=== PATIENT | female | born 1960 | race Caucasian/White ===

== ENCOUNTER 2017-01-16 18:25 | Emergency (ER) | payer BC ==
--- NOTE | 2017-01-16 18:40 | ERNOTE ---
Animal Bite ER Presenting Symptoms: bitten Time Seen by Provider: 01/16/17 18:31 Source: patient Exam Limitations: no limitations Immunizations: IMMUNIZATION HX Immunizations Up to Date Yes History of Influenza Vaccine Yes Hx Pneumococcal Vaccination No Allergies/Adverse Reactions: Allergies morphine Allergy (Verified 01/16/17 18:32) Home Medications: HOME MEDICATIONS Famotidine [Pepcid] 40 mg PO DAILY 01/07/14 [Last Taken 03/12/15] Aspirin [Aspirin EC] 81 mg PO DAILY 03/12/15 [Last Taken 03/12/15] Narrative: pt presents to our ED for a cat bite which already has been seen and evaluated AND treated. She is on Augmentin 875mg BID. 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 Review of Systems - Review of Systems Constitutional: Present: no symptoms reported EYE: Present: no symptoms reported ENT: Present: no symptoms reported Respiratory: Present: no symptoms reported Cardiology: Present: no symptoms reported Gastrointestinal/Abdominal: Present: no symptoms reported Genitourinary: Present: no symptoms reported Musculoskeletal: Present: See HPI - pt states she is unable to make a tight fist - Patient's Past Medical History Patient History - Medical: GERD Patient History - Cardiac/Respiratory: Hyperlipidemia Patient History - Cancer: Cervical Patient History - Surgical Procedures: Appendectomy, Hysterectomy, T & A Patient History - Other: None - Social History Living Situations: home Abuse History: No History of abuse Psych History: No pertinent hx Alcohol Use: none Drug Use: none - Immunizations Immunizations Up to Date: Yes Hx Pneumococcal Vaccination: No History of Influenza Vaccine: Yes Physical Exam - Physical Exam General Appearance: Present: wd/wn, alert, no apparent distress Respiratory: Present: no respiratory distress, normal breath sounds, no accessory muscle use, chest nontender, lungs clear Cardiovascular/Chest: Present: regular rate, rhythm, no murmur, normal peripheral pulses Extremity Exam: Present: other - old wounds from a healed up bite and scratch is noted on the dorsal aspect of right hand. There is no redness or inflammation purulent material or swelling noted ED Progress - Vital Signs Patient's Vital Signs:: I have reviewed the patient's vital signs. Vital Signs: Vital Signs 01/16/17 18:29 Temperature 36.4 C L Pulse Rate 120 H Respiratory 12 Rate Blood Pressure 116/82 O2 Sat by Pulse 95 Oximetry - Progress/Reassessment Chief Complaint: Animal Bite Plan - Plan Plan: Patient's right hand is significantly better than before this history comes from the patient herself. However she does not have full range of motion of the wrist or a good tight grasp on the right side. Patient is right dominant. At this time patient will be kept off work for 24 hours and she is to follow-up with her primary care doctor she has enough antibiotics and pain medications at home. Departure Clinical Impression: Cat bite Qualifiers: Encounter type: subsequent encounter Qualified Code(s): W55.01XD - Bitten by cat, subsequent encounter - Departure Disposition: Home self-care Condition: Good Instructions: Animal Bite Additional Instructions: Please stay off work tomorrow and follow up with your PCP next week. Referrals: Lamont Witt DO [Primary Care Provider] -
[2017-01-16 18:45] VITALS: BP 120/52
== END 2017-01-16 18:46 | disposition home or self-care (01) ==
LOC: ER 18:25
DX: S61.451D Open bite of right hand, subsequent encounter (principal); W55.01XD Bitten by cat, subsequent encounter; Z85.41 Personal history of malignant neoplasm of cervix uteri; K21.9 Gastro-esophageal reflux disease without esophagitis